=== PATIENT | female | born 1980 | race Caucasian/White ===

== ENCOUNTER 2022-03-18 21:37 | Emergency (ER) | payer OTHER ==
[2022-03-18] MEDS ORDERED: Ibuprofen 600 MG Tab PO ONE (23:10)
[2022-03-18 23:28] LABS: ESTIMATED GFR 95 mL/min (>60)
[2022-03-19] MEDS ORDERED: Sodium Chloride 0.9% 10 ML Syringe FLUSH ONE (01:01)
[2022-03-19] MEDS ORDERED: Iopamidol 755 Mg/ML 100 ML Bottle IVPUSH ONE (01:01)
[2022-03-19] MEDS ORDERED: Sodium Chloride 0.9% 100 ML IV SCH (01:15)
== END 2022-03-19 03:28 | disposition home or self-care (01) ==
LOC: JD.ED 21:37
DX: J40 Bronchitis, not specified as acute or chronic (principal); F17.210 Nicotine dependence, cigarettes, uncomplicated; Z20.822 Contact with and (suspected) exposure to COVID-19
CPT/HCPCS: 36415; 71045; 71275; 80053; 81003; 84484; 84703; 85025; 85379; 85610; 85730; 87635; 93005; 99285; A9270; J3490; Q9967; 93010; 99284; U0002

== ENCOUNTER 2022-06-17 11:37 | Emergency (ER) | payer OTHER | END 2022-06-17 13:24 | LOC: JD.ED 11:37 | DX: Z53.21 Procedure and treatment not carried out due to patient leaving prior to being seen by health care provider (principal) ==